=== PATIENT | male | born 1960 | race Caucasian/White ===

== ENCOUNTER → 2018-12-15 | Outpatient (REF) | payer OTHER | LOC: M SFHCLERA 18:16 | PROVIDERS: ATTEND Physician Assistant | DX: J02.9 Acute pharyngitis, unspecified (principal) ==

== ENCOUNTER 2020-12-02 10:29 | Emergency (ER) | payer OTHER ==
[~2020-12-02] VITALS: Ht 177.8 cm; Wt 71.3 kg
[2020-12-02] MEDS ORDERED: CYCL-707 PO (13:18)
[2020-12-02] MEDS ORDERED: IBUP80TA PO (13:18)
[2020-12-02 13:28] VITALS: BP 130/84
== END 2020-12-02 13:29 | disposition home or self-care (01) ==
LOC: M ED 10:29
DX: S29.012A Strain of muscle and tendon of back wall of thorax, initial encounter (principal); W01.0XXA Fall on same level from slipping, tripping and stumbling without subsequent striking against object, initial encounter; Y92.9 Unspecified place or not applicable; Y93.83 Activity, rough housing and horseplay; Y99.9 Unspecified external cause status; F17.200 Nicotine dependence, unspecified, uncomplicated

== ENCOUNTER 2021-04-11 11:45 | Inpatient (IN) | payer OTHER ==
[~2021-04-11] VITALS: Ht 177.8 cm; Wt 73.7 kg
[~2021-04-11 11:45] MED LIST: CYCL-707 PO; IBUP80TA PO
[2021-04-11] MEDS ORDERED: AMPICILLIN SOD/SULBACTAM SOD 3 GM in D5W MINI-BAG PLUS 100 ML IV ONE (13:20)
[2021-04-11 13:50] LABS: BASO % 0.3 % (0.0-1.0); EOS # 0.1 10^3/uL (0.0-0.5); EOS % 1.2 % (0.0-3.0); HEMATOCRIT 48.3 % (42.0-52.0); HEMOGLOBIN 16.1 g/dl (13.5-17.5); LYMPH # 2.2 10^3/uL (1.5-5.0); LYMPH % 21.1 % (24.0-44.0); MEAN CORPUSCULAR HGB CONC 33.3 g/dl (32.0-36.5); MEAN CORPUSCULAR VOLUME 93.1 fl (80.0-96.0); MONO # 0.8 10^3/uL (0.0-0.8); MONO % 7.5 % (2.0-8.0); NEUTROPHILS # 7.3 10^3/uL (1.5-8.5); NEUTROPHILS % 69.7 % (36.0-66.0); PLATELET COUNT, AUTOMATED 231 10^3/uL (150-450); RED BLOOD COUNT 5.19 10^6/uL (4.30-6.10); WHITE BLOOD COUNT 10.5 10^3/uL (4.0-10.0)
[2021-04-11] MEDS ORDERED: BOOSTRIX/ADACEL VACCINE (DIPHTH/PERTUSS/ACELL/TETANUS) 0.5ML SYR IM ONE (14:00)
[2021-04-11 14:13] LABS: ERYTHROCYTE SEDIMENTATION RATE 6 mm/hr (0-20)
[2021-04-11 14:18] LABS: BLOOD UREA NITROGEN 11 MG/DL (7-18); C REACTIVE PROTEIN QUANTITATIV 0.57 MG/DL (0.00-0.30); CARBON DIOXIDE LEVEL 30 MEQ/L (21-32); CHLORIDE LEVEL 106 MEQ/L (98-107); CREATININE FOR GFR 0.81 MG/DL (0.70-1.30); GLOMERULAR FILTRATION RATE > 60.0 (>56); GLUCOSE, FASTING 88 MG/DL (70-100); SODIUM LEVEL 140 MEQ/L (136-145)
[2021-04-11 14:30] LABS: RSV AMPLIFICATION NEGATIVE (NEGATIVE)
[2021-04-11] MEDS ORDERED: CENT1TAB2 PO (14:51)
[2021-04-11] MEDS ORDERED: GLUCTAB6 PO (14:51)
[2021-04-11] MEDS ORDERED: HOME MED LIST COMPLETE! XX SCH (14:55)
[2021-04-11] MEDS ORDERED: NALOXONE INJ 0.4MG/1ML VIAL (J2310 PER 1MG) IV PRN (16:15)
[2021-04-11] MEDS ORDERED: MOM 30ML SUSPENSION UDC PO PRN (16:15)
[2021-04-11] MEDS ORDERED: MORPHINE 30 MG TAB **MSIR PO PRN (16:15)
[2021-04-11] MEDS ORDERED: SENOKOT S TAB PO PRN (16:15)
[2021-04-11] MEDS ORDERED: MORPHINE 4 MG/ML 1ML VIAL/SYRINGE (J2270) IV PRN (16:15)
[2021-04-11] MEDS: NS 1,000 ML IV SCH (17:00)
[2021-04-11] MEDS: ACETAMINOPHEN 500 MG TAB PO SCH ×2 (18:08→21:31)
[2021-04-11] MEDS: KETOROLAC 30 MG/ML 1ML VIAL IV SCH ×2 (18:09→23:54)
[2021-04-11 19:03] VITALS: BP 118/67
[2021-04-11] MEDS: AMPICILLIN SOD/SULBACTAM SOD 3 GM in D5W MINI-BAG PLUS 100 ML IV SCH (21:30)
[2021-04-11 22:00] VITALS: BP 120/70
[2021-04-12] MEDS: AMPICILLIN SOD/SULBACTAM SOD 3 GM in D5W MINI-BAG PLUS 100 ML IV SCH ×4 (01:31→21:00)
[2021-04-12 06:00] VITALS: BP 104/65
[2021-04-12] MEDS: NS 1,000 ML IV SCH (06:21)
[2021-04-12] MEDS: KETOROLAC 30 MG/ML 1ML VIAL IV SCH ×3 (06:22→17:11)
[2021-04-12] MEDS: ACETAMINOPHEN 500 MG TAB PO SCH ×4 (09:12→21:00)
[2021-04-12 09:36] LABS: BASO % 0.2 % (0.0-1.0); EOS # 0.2 10^3/uL (0.0-0.5); HEMATOCRIT 45.2 % (42.0-52.0); LYMPH # 2.2 10^3/uL (1.5-5.0); MEAN CORPUSCULAR HEMOGLOBIN 31.1 pg (27.0-33.0); MEAN CORPUSCULAR HGB CONC 33.2 g/dl (32.0-36.5); MEAN CORPUSCULAR VOLUME 93.6 fl (80.0-96.0); MONO # 0.7 10^3/uL (0.0-0.8); MONO % 8.3 % (2.0-8.0); NEUTROPHILS # 5.1 10^3/uL (1.5-8.5); PLATELET COUNT, AUTOMATED 221 10^3/uL (150-450); RED BLOOD COUNT 4.83 10^6/uL (4.30-6.10); WHITE BLOOD COUNT 8.3 10^3/uL (4.0-10.0)
[2021-04-12 09:59] LABS: BLOOD UREA NITROGEN 11 MG/DL (7-18); CALCIUM LEVEL 8.3 MG/DL (8.5-10.1); CARBON DIOXIDE LEVEL 27 MEQ/L (21-32); CHLORIDE LEVEL 111 MEQ/L (98-107); CREATININE FOR GFR 0.68 MG/DL (0.70-1.30); GLOMERULAR FILTRATION RATE > 60.0 (>56); GLUCOSE, FASTING 103 MG/DL (70-100); SODIUM LEVEL 142 MEQ/L (136-145)
[2021-04-12 14:00] VITALS: BP 104/61
[2021-04-12 22:00] VITALS: BP 100/67
[2021-04-13] MEDS: AMPICILLIN SOD/SULBACTAM SOD 3 GM in D5W MINI-BAG PLUS 100 ML IV SCH ×3 (03:21→13:12)
[2021-04-13 06:00] VITALS: BP 120/75
[2021-04-13] MEDS: KETOROLAC 30 MG/ML 1ML VIAL IV SCH ×3 (06:28→12:00)
[2021-04-13] MEDS: ACETAMINOPHEN 500 MG TAB PO SCH ×2 (09:09→12:28)
[2021-04-13] MEDS ORDERED: DOXY100C3 PO (09:23)
[2021-04-13] MEDS ORDERED: BACITAB PO (09:23)
[2021-04-13] MEDS ORDERED: AUGM875T28 PO (09:23)
[2021-04-13] MEDS ORDERED: MUPI30CR TOP (09:24)
[2021-04-13 09:26] LABS: BASO % 0.4 % (0.0-1.0); EOS # 0.1 10^3/uL (0.0-0.5); EOS % 1.7 % (0.0-3.0); HEMATOCRIT 43.6 % (42.0-52.0); HEMOGLOBIN 14.7 g/dl (13.5-17.5); LYMPH # 1.9 10^3/uL (1.5-5.0); LYMPH % 22.8 % (24.0-44.0); MEAN CORPUSCULAR HEMOGLOBIN 31.1 pg (27.0-33.0); MEAN CORPUSCULAR HGB CONC 33.7 g/dl (32.0-36.5); MEAN CORPUSCULAR VOLUME 92.2 fl (80.0-96.0); MONO # 0.6 10^3/uL (0.0-0.8); MONO % 7.3 % (2.0-8.0); NEUTROPHILS # 5.7 10^3/uL (1.5-8.5); NEUTROPHILS % 67.6 % (36.0-66.0); PLATELET COUNT, AUTOMATED 209 10^3/uL (150-450); RED BLOOD COUNT 4.73 10^6/uL (4.30-6.10); WHITE BLOOD COUNT 8.4 10^3/uL (4.0-10.0)
[2021-04-13 09:39] LABS: BLOOD UREA NITROGEN 9 MG/DL (7-18); C REACTIVE PROTEIN QUANTITATIV 0.44 MG/DL (0.00-0.30); CALCIUM LEVEL 8.2 MG/DL (8.5-10.1); CARBON DIOXIDE LEVEL 28 MEQ/L (21-32); CHLORIDE LEVEL 109 MEQ/L (98-107); GLOMERULAR FILTRATION RATE > 60.0 (>56); GLUCOSE, FASTING 132 MG/DL (70-100); SODIUM LEVEL 141 MEQ/L (136-145)
[2021-04-13 09:49] LABS: ERYTHROCYTE SEDIMENTATION RATE 7 mm/hr (0-20)
== END 2021-04-13 14:02 | disposition home or self-care (01) | DRG 383 ==
LOC: M ED 11:45 → M ED INP 16:13 → ENRESERV 18:28 → M MSPAV 18:53
PROVIDERS: ADMIT General Practice; ATTEND General Practice
DX: L03.114 Cellulitis of left upper limb (principal); S60.572A Other superficial bite of hand of left hand, initial encounter; W55.01XA Bitten by cat, initial encounter; F17.210 Nicotine dependence, cigarettes, uncomplicated; Z20.822 Contact with and (suspected) exposure to COVID-19; Y92.69 Other specified industrial and construction area as the place of occurrence of the external cause

== ENCOUNTER 2024-02-08 02:42 | Emergency (ER) | payer OTHER ==
[~2024-02-08] VITALS: Ht 177.8 cm; Wt 70.5 kg
[~2024-02-08 02:42] MED LIST changes: +AUGM875T28 PO; +BACITAB PO; +CENT1TAB2 PO; +DOXY100C3 PO; +GLUCTAB7 PO; +MUPI30CR TOP
[2024-02-08] MEDS: diazePAM 10MG/2ML SYRINGE IM ONE (06:56)
[2024-02-08 07:22] VITALS: BP 136/77; TEMP 97.2; O2SAT 97
[2024-02-08] MEDS ORDERED: SOMA250T PO (08:30)
== END 2024-02-08 09:02 | disposition home or self-care (01) ==
LOC: M ED 02:42
DX: S39.012A Strain of muscle, fascia and tendon of lower back, initial encounter (principal); X58.XXXA Exposure to other specified factors, initial encounter; Y92.9 Unspecified place or not applicable; Y93.9 Activity, unspecified; Y99.9 Unspecified external cause status; F17.200 Nicotine dependence, unspecified, uncomplicated; Z79.899 Other long term (current) drug therapy
CPT/HCPCS: 72131; 96372; 99283; J3360

== ENCOUNTER → 2024-05-19 | Outpatient (CLI) | payer OTHER ==
[~2024-05-19] MED LIST changes: +SOMA250T PO
== END ==
LOC: M RAD 13:09
PROVIDERS: ATTEND Registered Nurse
DX: Z87.891 Personal history of nicotine dependence (principal)

== ENCOUNTER 2024-12-18 22:04 | Emergency (ER) | payer OTHER ==
[~2024-12-18] VITALS: Ht 177.8 cm; Wt 70.5 kg
[2024-12-18 22:45] LABS: BASO # 0.0 10^3/uL (0.0-0.2); BASO % 0.2 % (0.0-1.0); EOS # 0.2 10^3/uL (0.0-0.5); EOS % 1.6 % (0.0-3.0); LYMPH # 2.0 10^3/uL (1.5-5.0); LYMPH % 14.3 % (24.0-44.0); MONO # 1.3 10^3/uL (0.0-0.8); MONO % 9.5 % (2.0-8.0); NEUTROPHILS # 10.2 10^3/uL (1.5-8.5); NEUTROPHILS % 73.9 % (36.0-66.0); PLATELET COUNT, AUTOMATED 170 10^3/uL (150-450)
[2024-12-18 23:22] LABS: CALCIUM LEVEL 8.9 MG/DL (8.3-10.6); CARBON DIOXIDE LEVEL 29 MMOL/L (20-31); CHLORIDE LEVEL 100 MMOL/L (98-107); CREATININE FOR GFR 0.76 MG/DL (0.70-1.30); GLOMERULAR FILTRATION RATE > 90.0 (>49); POTASSIUM SERUM 3.7 MMOL/L (3.5-5.1); SODIUM LEVEL 140 MMOL/L (136-145)
[2024-12-19] MEDS: DALBAVANCIN 1,500 MG in D5W 250 ML IV ONE (01:55)
[2024-12-19 03:34] VITALS: BP 120/73; TEMP 98; O2SAT 95
== END 2024-12-19 03:45 | disposition home or self-care (01) ==
LOC: M ED 22:04
DX: L03.113 Cellulitis of right upper limb (principal); Z79.899 Other long term (current) drug therapy
CPT/HCPCS: 80048; 85025; 96365; 96366; 99284; J0875